=== PATIENT | female | born 1995 ===

== ENCOUNTER 2017-12-01 06:41 | Inpatient (IN) | payer OTHER ==
[~2017-12-01] VITALS: Ht 165.1 cm; Wt 54.9 kg
[2017-12-01] MEDS ORDERED: PRENATAL TABLE1 EACH PO (07:06)
== END 2017-12-01 10:11 | disposition designated cancer center or children's hospital (05) | DRG 782 ==
LOC: LDR 06:41
PROC: BY4DZZZ Ultrasonography of Second Trimester, Multiple Gestation (ICD-10-PCS; principal; 2017-12-01)
PROC: 4A1HXCZ Monitoring of Products of Conception, Cardiac Rate, External Approach (ICD-10-PCS; 2017-12-01)
DX: O42.012 Preterm premature rupture of membranes, onset of labor within 24 hours of rupture, second trimester (principal); O30.042 Twin pregnancy, dichorionic/diamniotic, second trimester; Z34.82 Encounter for supervision of other normal pregnancy, second trimester